=== PATIENT | female | born 1975 | race Caucasian/White ===

== ENCOUNTER 2021-05-10 07:12 | Emergency (ER) | payer OTHER ==
[~2021-05-10] VITALS: Ht 167.6 cm; Wt 63.5 kg
--- NOTE | 2021-05-10 07:12 | NUR ---
Patient to ER bed 4 to gown for evaluation. Side rails up. Report given to MAHAMED.
--- NOTE | 2021-05-10 07:15 | NUR ---
DR MASTERS IN TO ASSESS
--- NOTE | 2021-05-10 07:37 | NUR ---
X-RAYS COMPLETED, GUARDED MOVEMENTS, RESP UNLABORED,
[2021-05-10 07:46] VITALS: BP_SYST 141
[2021-05-10] MEDS: fentaNYL CITRATE/PF 100 MCG/2 ML AMP IM ONE (07:46)
[2021-05-10] MEDS ORDERED: IBUP-1969 PO (08:21)
--- NOTE | 2021-05-10 08:45 | NUR ---
SPLINT AND SLING APPLIED, CIRCULATION AND SENSATION INTACT
[2021-05-10 09:06] VITALS: BP_SYST 135
--- NOTE | 2021-05-10 09:10 | NUR ---
Patient given written and verbal discharge instructions and verbalizes understanding. ER MD discussed with patient the results and treatment provided. Patient in stable condition. ID arm band removed. Rx of IBU given. Patient educated on pain management and to follow up with PMD. Pain Scale 2/10 Opportunity for questions provided and answered. Medication side effect fact sheet provided.
== END 2021-05-10 09:10 | disposition home or self-care (01) ==
LOC: SED 07:12
DX: S53.105A Unspecified dislocation of left ulnohumeral joint, initial encounter (principal); Z79.899 Other long term (current) drug therapy; W01.198A Fall on same level from slipping, tripping and stumbling with subsequent striking against other object, initial encounter; Y93.89 Activity, other specified; Y92.89 Other specified places as the place of occurrence of the external cause; Y99.8 Other external cause status
CPT/HCPCS: 24600; 73070; 73080; 73090; 99284; J3010